=== PATIENT | female | born 1990 | race Two or more races ===

== ENCOUNTER 2024-10-21 18:47 | Emergency (ER) | payer BC, OTHER ==
[~2024-10-21] VITALS: Ht 162.6 cm; Wt 86.6 kg
[2024-10-21] MEDS ORDERED: FAMO20TA10 PO (22:29)
[2024-10-21] MEDS ORDERED: METH4PAK PO (22:29)
[2024-10-21 22:32] VITALS: BP 120/86; PULSE 95; RESP 16; TEMP 98; O2SAT 98
--- NOTE | 2024-10-21 22:33 | ED.PDOC ---
HPI Allergic reaction HPI Comments PT PRESENTED TO ED FOR CHEST/BACK RASH SINCE TODAY @1600 WITH ITCHINESS. PT STATED SHE WAS RECENTLY PLACED ON AMOXICILLIN FOR SORE THROAT. DENIES DIFFICULTY BREATHING, SHORTNESS OF BREATH, CHEST PAIN, THROAT SWELLING, NAUSEA OR VOMITING. 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 History Family History Family History: Unknown Social History Smoker: Non-Smoker Alcohol: Denies ETOH Use Drugs: Denies Drug Use Constitutional: denies: chills, diaphoresis, fatigue, fever, malaise, sweats, weakness, others EENTM: denies: blurred vision, double vision, ear bleeding, ear discharge, ear drainage, ear pain, ear ringing, eye pain, eye redness, hearing loss, mouth pain, mouth swelling, nasal discharge, nose bleeding, nose congestion, nose pain, photophobia, tearing, throat pain, throat swelling, voice changes, others Respiratory: denies: cough, hemoptysis, orthopnea, SOB at rest, shortness of breath, SOB with excertion, stridor, wheezing, others Cardiovascular: denies: chest pain, dizzy spells, diaphoresis, Dyspnea on exertion, edema, irregular heart beat, left arm pain, lightheadedness, palpitations, PND, syncope, others Gastrointestinal: denies: abdomen distended, abdominal pain, blood streaked bowels, constipated, diarrhea, dysphagia, difficulty swallowing, hematemesis, melena, nausea, poor appetite, poor fluid intake, rectal bleeding, rectal pain, vomiting, others Genitourinary: denies: abnormal vagina bleeding, burning, dyspareunia, dysuria, flank pain, frequency, hematuria, incontinence, pain, , vagina discharge, urgency, others Neurological: denies: dizziness, fainting, headache, left sided numbness, left sided weakness, numbness, paresthesia, pre-existing deficit, right sided numbness, right sided weakness, seizure, speech problems, tingling, tremors, weakness, others Musculoskeletal: denies: back pain, gout, joint pain, joint swelling, muscle pain, muscle stiffness, neck pain, others Integumetry: reports: rash; denies: bruises, change in color, change in hair/nails, dryness, laceration, lesions, lumps, wounds, others Allergic/Immunocompromised: denies: Difficulty Healing, Frequent Infections, Hives, Itching, others Hematologic/Lymphatic: denies: anemia, blood clots, easy bleeding, easy bruising, swollen glands, others Endocrine: denies: excessive hunger, excessive sweating, excessive thirst, excessive urination, flushing, intolerance to cold, intolerance to heat, unexplained weight gain, unexplained weight loss, others Psychiatric: denies: anxiety, bipolar disorder, depression, hopeless, panic disorder, schizophrenia, sleepless, suicidal, others Physical Exam General Appearance: No Apparent Distress, Normal HEENT: Normal ENT Inspection, Pharynx Normal, TMs Normal Neck: Full Range of Motion, Non-Tender Respiratory: Chest Non-Tender, Lungs Clear, No Accessory Muscle Use, No Respiratory Distress, Normal Breath Sounds Cardiovascular: No Edema, No JVD, No Murmur, No Gallop, Normal Peripheral Pulses, Regular Rate/Rhythm Breast Exam: Deferred Gastrointestinal: No Organomegaly, Non Tender, No Pulsatile Mass, Normal Bowel Sounds, Soft Genitalia: Deferred Pelvic: Deferred Rectal: Deferred Extremities: Normal capillary refill, Normal inspection, Normal range of motion, Non-tender, No pedal edema Musculoskeletal : Apperance: Normal Neurologic: Alert, wick and base assembler II-XII nml as Tested, No Motor Deficits, Normal Affect, Normal Mood, No Sensory Deficits Cerebellar Function: Normal Reflexes: Normal Skin: Dry, Normal Color, Rash (Papular erythemic rash scattered on chest and back no noted excoriations streaking or open lesions.), Warm Lymphatic: No Adenopathy Was a procedure done? Was a procedure done?: No Differential diagnosis (all) Differential Diagnosis: Anaphylaxis, Angioedema, Bronchospasm, Urticaria X-Ray, Labs, Meds, VS Vital Signs Date Time Temp Pulse Resp B/P (MAP) Pulse Ox O2 Delivery O2 Flow Rate FiO2 10/21/24 19:26 98.0 95 16 120/86 (97) 98 98.0 X-Ray, Labs, Meds, VS Comment LIKELY ALLERGIC SECONDARY TO UNKNOWN TRIGGER. PATIENT GIVEN DECADRON 10 MG IM AND PEPCID 40 MG P.O. REPORTS IMPROVEMENT SYMPTOMS REQUESTING DISCHARGE AT THIS TIME. SCRIPT MEDROL DOSEPAK AND PEPCID ADVISED TO TAKE MEDICATIONS PRESCRIBED SIDE EFFECTS DISCUSSED. REST, INCREASE P.O. FLUIDS WITH ELECTROLYTES. JAW AT HOME ON STANDBY. FOLLOW UP WITH YOUR PCP IN 2-3 DAYS NECESSARY CONSIDER ALLERGY TESTING REFERRAL IF SYMPTOMS PERSIST. ER RETURN PRECAUTIONS GIVEN PATIENT INDICATES UNDERSTANDING AGREES WITH DISCHARGE PLAN OF CARE. Time of 1ST Reevaluation: 22:27 Reevaluation 1ST: Unchanged Time of 2ND Reevaluation: 22:31 Reevaluation 2ND: Improved Patient Education/Counseling: Diagnosis, Treatment, Prognosis, Need For Follow Up Family Education/Counseling: No Family Present Departure 1 Departure Time of Disposition: 22:32 Impression: Primary Impression: Allergic reaction Qualified Codes: T78.40XA - Allergy, unspecified, initial encounter Disposition: HOME / SELF CARE / HOMELESS Condition: Stable e-Prescriptions Famotidine (PEPCID TABLET) 20 Mg Tb 1 TAB PO BID for 6 Days, #12 TAB Prov: BLANCA DINH 10/21/24 Methylprednisolone (Medrol Dosepak) 4 Mg Bill 4 MG PO UD for 6 Days, #21 TAB UAD Prov: BLANCA DINH 10/21/24 Discharged With: Self Critical Care Note Critical Care Time?: No Stability Stability form required: BLANCA Clay October 21, 2024 22:33
[2024-10-21] MEDS: FAMOTIDINE 20 MG TAB PO ONE (22:41)
[2024-10-21] MEDS: DexAMETHasone SOD PHOS 10MG/1ML VIAL INJ IM ONE (22:41)
== END 2024-10-21 22:42 | disposition home or self-care (01) ==
LOC: ER 18:47
DX: T78.40XA Allergy, unspecified, initial encounter (principal); X58.XXXA Exposure to other specified factors, initial encounter
CPT/HCPCS: 96372; 99283; J1100